=== PATIENT | male | born 1985 | race Caucasian/White ===

== ENCOUNTER 2020-05-16 20:04 | Emergency (ER) | payer BC ==
[2020-05-16] MEDS ORDERED: Diphtheria,Pertussis(Acell),Tetanus Vaccine 0.5 ML Syringe IM ONE (20:27)
--- NOTE | 2020-05-16 20:43 | EDM.PDOC ---
ED HPI GENERAL MEDICAL PROBLEM - General Chief Complaint: Laceration Stated Complaint: CUT TIPS OF FINGERS OFF Time Seen by Provider: 05/16/20 20:25 Source of Information: Reports: Patient, RN Notes Reviewed History Limitations: Reports: No Limitations - History of Present Illness INITIAL COMMENTS - FREE TEXT/NARRATIVE: Patient is a 35-year-old male who presents to the ED for evaluation of a left hand injury. Patient states that he was using a circular saw at home, and ended up cutting fingers on his left hand. He states that he has cut the tip of the ring finger off, almost down to the DIP knuckle joint, and and has also lacerated the anterior surface of his middle finger of his left hand. This extends from about the crease of the DIP joint, obliquely to the nailbed, but does not appear to involve the nail bed at this time. Unsure of bone involvement, as this is quite a flap on the middle finger. He does present with the tip of the ring finger in ice at this time. He is not sure if this can be reattached. He does not appear to have any sort of tendinous injury at this time. Patient denies any other sick-like symptoms, fever/chills, cough/shortness of breath, nausea/vomiting/diarrhea. - Related Data Allergies Allergy/AdvReac Type Severity Reaction Status Date / Time No Known Allergies Allergy Verified 05/16/20 20:21 Home Meds: Home Meds Acetaminophen/HYDROcodone [Chelsea 325-5 MG] 1 tab PO Q6H PRN #15 tablet 05/16/20 [Rx] cephALEXin [Cephalexin] 500 mg PO QID 7 Days #28 capsule 05/16/20 [Rx] Past Medical History HEENT History: Reports: Impaired Vision Other HEENT History: Wears glasses Respiratory History: Reports: Asthma Social & Family History - Tobacco Use Tobacco Use Status *Q: Never Tobacco User ED ROS GENERAL - Review of Systems Review Of Systems: Comprehensive ROS is negative, except as noted in HPI. ED EXAM, SKIN/RASH Exam: See Below Exam Limited By: No Limitations General Appearance: Alert, WD/WN, No Apparent Distress Respiratory/Chest: No Respiratory Distress, Lungs Clear, Normal Breath Sounds, No Accessory Muscle Use, Chest Non-Tender Cardiovascular: Normal Peripheral Pulses, Regular Rate, Rhythm, No Murmur Peripheral Pulses: 2+: Radial (L), Radial (R) Extremities: Other (The patient has completely cut off the tip of the left ring finger, almost down to the DIP joint. There does appear to be possibly enough skin to close this, he might require amputation of the rest of the bone. The patient's middle finger of the left hand, will likely be able to be sutured, he should not have to lose the tip of that finger at this time. There is no tendinous injury made overly apparent regarding the middle finger.) Neurological: Alert, Oriented, Normal Cognition, No Motor/Sensory Deficits Psychiatric: Normal Affect, Normal Mood Skin: Warm, Dry, Normal Color, No Rash, Wound/Incision (See extremity assessment for further detail) ED SKIN PROCEDURES - Splinting Left 4th Digit Splint Site: left ring finger Pre-Procedure NV Status: Normal Post-Procedure NV Status: Normal Splint Material: Aluminum-Foam (cage type splint) Applied & Form Fitted By: Provider, Nurse Provider Post-Splint Application NV Check: NV Status Normal, Good Position Complications: No Left 3rd Digit Splint Site: left middle finger Pre-Procedure NV Status: Normal Post-Procedure NV Status: Normal Splint Material: Aluminum-Foam Applied & Form Fitted By: Provider, Nurse Provider Post-Splint Application NV Check: NV Status Normal, Good Position Complications: No Progress/Comments: pressure dressing placed to both wounds to provide relief from bleeding at this time Course - Vital Signs Last Recorded V/S: Last Vital Signs Temp 97.0 F 05/16/20 20:16 Pulse 70 05/16/20 20:16 Resp 18 05/16/20 20:16 BP 114/84 05/16/20 20:16 Pulse Ox 98 05/16/20 20:16 - Orders/Labs/Meds Orders: Active Orders 24 hr Category Date Time Status Vaccines to be Administered [RC] PER UNIT ROUTINE Care 05/16/20 20:27 Ordered Hand 2V Lt [CR] Stat Exams 05/16/20 20:18 Ordered Acetaminophen/HYDROcodone [Chelsea 325-5 MG] Med 05/16/20 21:16 Once 2 tab PO ONETIME ONE Meds: Medications Discontinued Medications Generic Name Dose Route Start Last Admin Trade Name Freq PRN Reason Stop Dose Admin Cephalexin 500 mg 05/16/20 20:58 Keflex PO 05/16/20 20:59 ONETIME ONE Diphtheria/Tetanus/Acell Pertussis 0.5 ml 05/16/20 20:27 05/16/20 20:52 Adacel IM 05/16/20 20:28 0.5 ml .ONCE ONE Administration - Re-Assessments/Exams Free Text/Narrative Re-Assessment/Exam: 05/16/20 20:44 2 view hand x-ray was obtained at time of triage due to the trauma incurred. I did review these with Dr. Woods, and he does think that the patient would benefit from orthopedic surgery hand specialist. He will likely need some amputation. Patient was not up-to-date on his tetanus and this has been updated. I will consult Ortho in [place] for further management. 05/16/20 21:16 I did talk with Dr. Blackwell in [place], he states to try to bandage the fingers as appropriate, and have him follow-up with hand surgeon early next week for possible amputation, and further management. Patient will be given a course of Keflex, first dose given in the ER. He will be given some tablets of Chelsea for pain management, and again have him follow-up with hand surgery early next week. Departure - Departure Time of Disposition: 21:17 Disposition: Home, Self-Care 01 Condition: Fair Clinical Impression: Fracture, finger, distal phalanx, open Qualifiers: Encounter type: initial encounter Finger: ring finger Fracture alignment: displaced Laterality: left Qualified Code(s): S62.635B - Displaced fracture of distal phalanx of left ring finger, initial encounter for open fracture Open fracture of distal phalanx of finger of left hand Qualifiers: Encounter type: initial encounter Finger: middle finger Fracture alignment: nondisplaced Qualified Code(s): S62.663B - Nondisplaced fracture of distal phalanx of left middle finger, initial encounter for open fracture - Discharge Information *PRESCRIPTION DRUG MONITORING PROGRAM REVIEWED*: Yes *COPY OF PRESCRIPTION DRUG MONITORING REPORT IN PATIENT STEVE: No Prescriptions: cephALEXin [Cephalexin] 500 mg PO QID 7 Days #28 capsule Acetaminophen/HYDROcodone [Chelsea 325-5 MG] 1 tab PO Q6H PRN #15 tablet PRN Reason: Pain Instructions: Traumatic Finger Amputation Referrals: PCP,None [Primary Care Provider] - Forms: ED Department Discharge Additional Instructions: You have been evaluated in the ED for your hand injury. Your x-ray demonstrated a complete amputation of the distal fingertip on your left ring finger, and an open fracture of the fingertip on your middle finger. Your wounds have been managed with aluminum foam splints, and pressure bandages. Please keep these in place, over the weekend. Please use ice as tolerated to the affected area. You may elevate the affected area to provide further relief from swelling. You may take Tylenol 500 mg or ibuprofen 600mg q6 hrs for pain relief. Please do so until you have a tolerable level of pain with activity. Do not exceed 4000mg Tylenol, Do not exceed 3200mg ibuprofen in a 24 hour time period. You were given a prescription for a strong pain medication, hydrocodone/acetaminophen 5/325, please take 1 tab every 6 hours as needed for pain not relieved by Tylenol or ibuprofen alone. Please note this does contain Tylenol in it, so do not take more than 4000 mg in a 24-hour time span. These medications can be addictive, so please take as few as possible to achieve adequate pain control. These meds can also be quite constipating, recommend that you increase your oral fluid intake and take a stool softener like MiraLAX while taking these medications. You will need to follow-up with a hand specialist for further management of your injuries. Your films have already been electronically shared with [facility] in [facility], please call their office at [phone], early Tuesday morning to set up an appointment for further management of your wounds. The Ortho specialist Dr. Blackwell was made aware of your case tonight. You may tell them that he was consulted on your case. Please return to ED if your symptoms should change or worsen. Sepsis Event Note (ED) - Evaluation Sepsis Screening Result: No Definite Risk - Focused Exam Vital Signs: Vital Signs Temp Pulse Resp BP Pulse Ox 05/16/20 20:16 97.0 F 70 18 114/84 98 - My Orders Last 24 Hours: My Active Orders 05/16/20 20:18 Hand 2V Lt [CR] Stat 05/16/20 20:27 Vaccines to be Administered [RC] PER UNIT ROUTINE 05/16/20 21:16 Acetaminophen/HYDROcodone [Chelsea 325-5 MG] 2 tab PO ONETIME ONE - Assessment/Plan Last 24 Hours: My Active Orders 05/16/20 20:18 Hand 2V Lt [CR] Stat 05/16/20 20:27 Vaccines to be Administered [RC] PER UNIT ROUTINE 05/16/20 21:16 Acetaminophen/HYDROcodone [Chelsea 325-5 MG] 2 tab PO ONETIME ONE
[2020-05-16] MEDS ORDERED: Cephalexin 500 MG Cap PO ONE (20:58)
[2020-05-16] MEDS ORDERED: Acetaminophen/HYDROcodone 325-5 MG Tab PO ONE (21:16)
--- NOTE | 2020-05-19 09:24 | CR ---
PROCEDURE INFORMATION: Exam: XR Left Hand Exam date and time: 05/16/2020 8:14 PM Age: 35 years old Clinical indication: Injury or trauma; Other: Circular saw accident; Amputation, traumatic and bleeding/hemorrhage; Left middle finger and left ring finger TECHNIQUE: Imaging protocol: XR Left hand. Views: 1 or 2 views. COMPARISON: No relevant prior studies available. FINDINGS/IMPRESSION: Amputation to the tip of the 4th finger distal phalanx, involving amputation of the tuft. There is associated soft tissue amputation to the tip of the 4th finger. Severely comminuted fracture to the 3rd finger distal phalanx with displacement of fracture fragments. Significant soft tissue swelling noted at the tip of the 3rd finger with a large laceration. No other acutely displaced fractures are appreciated. No dislocation. No aggressive osseous lesions. Thank you for allowing us to participate in the care of your patient. Dictated and Authenticated by: Ismael Hernandez MD 05/16/2020 9:47 PM Central Time ([place] & [place]) JEFFREY
== END 2020-05-16 22:20 | disposition home or self-care (01) ==
LOC: JD.ED 20:04
DX: S62.635B Displaced fracture of distal phalanx of left ring finger, initial encounter for open fracture (principal); S62.663B Nondisplaced fracture of distal phalanx of left middle finger, initial encounter for open fracture; J45.909 Unspecified asthma, uncomplicated; Z23 Encounter for immunization; W31.2XXA Contact with powered woodworking and forming machines, initial encounter; Y92.009 Unspecified place in unspecified non-institutional (private) residence as the place of occurrence of the external cause
CPT/HCPCS: 73120; 90471; 90715; 99283; A9270